=== PATIENT | male | born 1985 | race Caucasian/White ===

== ENCOUNTER → 2018-05-05 14:57 | Outpatient (CLI) | payer OTHER, SELFPAY ==
--- NOTE | 2018-05-05 | DI.US.S_ITS ---
PROCEDURE: US RENAL COMPLETE INDICATIONS: CYST OF RIGHT KIDNEY TECHNIQUE: Real-time scanning was performed of the kidneys and bladder, with image documentation. COMPARISON: [facility], CT, CT ABD PELVIS W CON, 04/21/2016, 11:49. [facility], CT, CT ABD PELVIS W CON, 04/26/2016, 3:16. [facility], CT, CT ABDOMEN PELVIS WITH CONTRAST, 04/25/2018, 0:48. FINDINGS: Kidneys: Kidneys are normal in size. Right kidney measures 10.7 cm long; left kidney measures 12.3 cm long. Right renal cortical thickness is 1.9 cm; left renal cortical thickness is 1.8 cm. Renal cortical echotexture is normal. No hydronephrosis or nephrolithiasis. No suspicious solid mass lesions are found however there is a hyperdense presumed cyst at the medial cortex of the junction of the middle and lower thirds of the right kidney which was also present in April of 2016. This structure by ultrasound is measured at 1.5 x 1.5 cm and on prior current CT scanning from 04/25/18 and also from prior CT scanning in April of 2016 had measured approximately 1.8 cm AP and 1.8 cm transverse.. Bladder: Bladder assessment could not be effectively performed do to the voiding by the patient just before the examination. Miscellaneous: No free pelvic fluid. IMPRESSION: Hyperdense cyst or benign solid structure is the likely cause for the rounded radiodensity within the right renal cortex seen by ultrasound today. This has been present on prior CT scanning including from April of 2016 without change number operator time. This measures up to 39.4 Hounsfield units. No additional similar appearing structure can be seen bilaterally. Given the stability of appearance over time this almost certainly is a benign structure. Due to its clear visibility by ultrasound I would recommend obtaining a followup ultrasound in one year to confirm stability of appearance over time. Dictated by: Bebeto Ragsdale M.D. on 05/05/2018 at 16:27 Approved by: Bebeto Ragsdale M.D. on 05/05/2018 at 16:43
== END ==
PROVIDERS: PCP Family Medicine; Visit Provider Family Medicine
DX: N28.1 Cyst of kidney, acquired (principal)
CPT/HCPCS: 76770